=== PATIENT | male | born 1940 | race Caucasian/White ===

== ENCOUNTER 2016-03-20 08:00 | Outpatient (CLI) | payer MEDICARE, OTHER | END 2016-03-20 08:01 | disposition home or self-care (01) | DX: M79.1 Myalgia (principal) ==

== ENCOUNTER 2016-05-10 15:49 | Outpatient (CLI) | payer MEDICARE, OTHER | END 2016-05-10 15:50 | disposition home or self-care (01) | DX: J32.8 Other chronic sinusitis (principal); J34.89 Other specified disorders of nose and nasal sinuses; I65.29 Occlusion and stenosis of unspecified carotid artery ==

== ENCOUNTER 2016-06-21 12:23 | Outpatient (CLI) | payer MEDICARE, OTHER | END 2016-06-21 12:24 | disposition home or self-care (01) | DX: E78.2 Mixed hyperlipidemia (principal) ==

== ENCOUNTER 2016-10-23 08:00 | Outpatient (CLI) | payer MEDICARE, OTHER ==
[2016-10-23 18:33] LABS: ALBUMIN/GLOBULIN RATIO 1.5 (1.0-2.2); CALCIUM 8.7 mg/dL (8.5-10.3); CREATININE 1.2 mg/dL (0.6-1.2); POTASSIUM 3.6 mmol/L (3.5-5.0); TOTAL PROTEIN 6.7 g/dL (6.7-8.2)
[2016-10-25 12:41] LABS: TEST RESULT REPORT (())
[2016-10-25 16:07] LABS: TEST RESULT REPORT (())
== END 2016-10-23 08:01 | disposition home or self-care (01) ==
LOC: LAB.F 08:00
PROVIDERS: ATTEND Internal Medicine Cardiovascular Disease
DX: E78.2 Mixed hyperlipidemia (principal)
CPT/HCPCS: 36415; 80053; 81599; 82465; 82550; 83704; 83718; 84478

== ENCOUNTER 2017-01-31 07:51 | Outpatient (CLI) | payer MEDICARE, OTHER ==
[2017-01-31 11:44] LABS: PSA TOTAL 1.26 ng/mL (0.000-2.000)
[2017-01-31 11:49] LABS: THYROID STIMULATING HORMONE 1.39 uIU/mL (0.34-5.60)
[2017-01-31 11:54] LABS: PROLACTIN 22.75 ng/mL
== END 2017-01-31 07:52 | disposition home or self-care (01) ==
LOC: LAB.F 07:51
PROVIDERS: ATTEND Internal Medicine Endocrinology, Diabetes & Metabolism
DX: D35.2 Benign neoplasm of pituitary gland (principal); E23.0 Hypopituitarism
CPT/HCPCS: 36415; 84146; 84153; 84403; 84439; 84443; 85014; 85025

== ENCOUNTER 2017-02-16 11:15 | Outpatient (CLI) | payer MEDICARE, OTHER ==
[2017-02-16 17:43] LABS: BASOPHILS % (AUTO) 0.2 %; EOSINOPHILS # (AUTO) 0.2 10^3/uL (0.0-0.7); HCT - HEMATOCRIT 39.4 % (42.0-52.0); HGB - HEMOGLOBIN 13.1 g/dL (14.0-18.0); LYMPHOCYTES # (AUTO) 2.1 10^3/uL (1.5-3.5); LYMPHOCYTES % (AUTO) 34.6 %; MEAN CORPUSCULAR HEMOGLOBIN 29.7 pg (27.0-31.0); MEAN CORPUSCULAR HGB CONC 33.2 g/dL (32.0-36.0); MEAN CORPUSCULAR VOLUME 89.3 fL (80.0-94.0); MONOCYTES # (AUTO) 0.6 10^3/uL (0.0-1.0); MONOCYTES % (AUTO) 10.4 %; NEUTROPHILS # (AUTO) 3.1 10^3/uL (1.5-6.6); NEUTROPHILS % (AUTO) 51.8 %; RED BLOOD COUNT 4.41 10^6/uL (4.70-6.10); RED CELL DISTRIBUTION WIDTH 13.6 % (12.0-15.0)
[2017-02-16 18:34] LABS: CALCIUM 8.6 mg/dL (8.5-10.3); CREATININE 1.2 mg/dL (0.6-1.2); POTASSIUM 3.6 mmol/L (3.5-5.0)
== END 2017-02-16 11:16 | disposition home or self-care (01) ==
LOC: LAB.F 11:15
PROVIDERS: ATTEND Internal Medicine
DX: I10 Essential (primary) hypertension (principal); D64.9 Anemia, unspecified
CPT/HCPCS: 36415; 80048; 85025

== ENCOUNTER 2017-03-22 14:55 | Outpatient (CLI) | payer MEDICARE, OTHER ==
--- NOTE | 2017-03-23 10:19 | XRAY Report ---
DATE OF SERVICE: 03/22/2017 THREE VIEW LUMBAR SPINE: 03/22/2017 CLINICAL INDICATION: Low back pain. FINDINGS: AP, lateral, coned down views of the lumbar spine are compared to previous films of 02/16/2016. Degenerative disk and facet disease appears stable, with the worst disk space narrowing at L4-L5. There is no evidence of interval fracture or subluxation. Mild dextroscoliosis is present, which may be positional in nature. 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 IMPRESSION: MILD DEGENERATIVE CHANGES, WITHOUT SIGNIFICANT INTERVAL CHANGE. NO EVIDENCE OF INTERVAL FRACTURE. TD: 03/23/2017 11:18
== END 2017-03-22 14:56 | disposition home or self-care (01) ==
LOC: DI 14:55
PROVIDERS: ATTEND Internal Medicine
DX: M51.36 Other intervertebral disc degeneration, lumbar region (principal); M47.896 Other spondylosis, lumbar region
CPT/HCPCS: 72100

== ENCOUNTER 2017-08-23 10:27 | Outpatient (CLI) | payer MEDICARE, OTHER ==
[2017-08-23 18:19] LABS: CREATININE 1.3 mg/dL (0.6-1.2)
[2017-08-23 18:23] LABS: COLLECTION TIME,URINE 1440 min; TOTAL VOLUME,URINE 1900 mL
[2017-08-23 18:31] LABS: CREATININE,URINE 59.1 mg/dL
== END 2017-08-23 10:28 | disposition home or self-care (01) ==
LOC: LAB.F 10:27
PROVIDERS: ATTEND Internal Medicine Nephrology
DX: N18.3 Chronic kidney disease, stage 3 (moderate) (principal)
CPT/HCPCS: 36415; 82565; 82575; 84156

== ENCOUNTER 2017-09-15 10:30 | Outpatient (CLI) | payer MEDICARE, OTHER ==
[2017-09-15 11:40] LABS: THYROID STIMULATING HORMONE 0.13 uIU/mL (0.34-5.60)
[2017-09-15 11:42] LABS: FREE T4 (FREE THYROXINE) 1.28 ng/dL (0.58-1.64)
== END 2017-09-15 10:31 | disposition home or self-care (01) ==
LOC: LAB 10:30
PROVIDERS: ATTEND Internal Medicine Endocrinology, Diabetes & Metabolism
DX: D35.2 Benign neoplasm of pituitary gland (principal)
CPT/HCPCS: 36415; 84439; 84443; 84481

== ENCOUNTER 2017-11-20 14:38 | Outpatient (CLI) | payer MEDICARE, OTHER | END 2017-11-20 14:39 | disposition home or self-care (01) | LOC: LAB.F 14:38 | PROVIDERS: ATTEND Internal Medicine | DX: Z12.5 Encounter for screening for malignant neoplasm of prostate (principal) | CPT/HCPCS: 36415; G0103; 84153 ==

== ENCOUNTER 2017-12-15 10:55 | Emergency (ER) | payer MEDICARE, OTHER ==
--- NOTE | 2017-12-15 12:36 | ED Physician Documentation ---
PD HPI URI - Stated complaint Stated Complaint: COUGH,SOA - Chief complaint Chief Complaint: Resp - History obtained from History obtained from: Patient, Family - History of Present Illness Timing details: Gradual onset (He and his just got back from [place], while there about 2 weeks ago he got a cold with classic URI symptoms. He was improving but over the last day or so has developed more paroxysms of coughing. During the coughing he is short of breath but he does not have shortness of breath or chest pain when he is not coughing. He denies any leg swelling or pedal edema. He has had some calf cramping but it is symmetric and that was from flying. He called his doctor who based on the travel was worried about PE and referred him to the emergency department.) Review of Systems Ten Systems: 10 systems reviewed and negative Constitutional: denies: Fever, Chills Nose: reports: Rhinorrhea / runny nose Respiratory: reports: Cough. denies: Dyspnea GI: denies: Abdominal Pain PD PAST MEDICAL HISTORY - Past Medical History Past Medical History: Yes Cardiovascular: Hypertension, Coronary artery disease Respiratory: None Endocrine/Autoimmune: None GI: GERD : Benign prostate hypertrophy Musculoskeletal: None Derm: None Other Past Medical History: Pituitary tumor - Past Surgical History Past Surgical History: Yes General: Colonoscopy, EGD Ortho: ACL reconstruction Cardiovascular: Angioplasty HEENT: Cataracts, Detached retina repair - Present Medications Home Medications: Ambulatory Orders Medication Instructions Recorded Confirmed Amlodipine Besylate 5 mg PO DAILY 07/04/13 12/15/17 Aspirin [Children's Aspirin] 81 mg PO DAILY 07/04/13 12/15/17 Nebivolol HCl [Bystolic] 5 mg PO DAILY 07/04/13 12/15/17 Telmisartan [Micardis] 80 mg PO DAILY 07/04/13 12/15/17 Ubidecarenone [Co Q-10] 10 mg PO DAILY 07/04/13 12/15/17 Omeprazole 20 mg PO BID PRN 07/07/13 12/15/17 Albuterol Sulf [Ventolin Hfa 1 - 2 puffs INH Q4HR PRN #1 inhaler 12/15/17 Inhaler] Alirocumab [Praluent Pen] 1 applic SUBQ DAILY 12/15/17 12/15/17 Ascorbic Acid [Vitamin C] 1 cap PO DAILY 12/15/17 12/15/17 Benzonatate [Tessalon Perle] 100 - 200 mg PO TID PRN #30 capsule 12/15/17 Cholecalciferol (Vitamin D3) 1 cap PO DAILY 12/15/17 12/15/17 [Vitamin D3] Hydrocodone Bit/Homatrop Me-Br 5 - 10 ml PO Q4HR PRN #120 ml 12/15/17 [Hydrocodone-Homatropine Syrup] Levothyroxine Sodium 1 tab PO DAILY 12/15/17 12/15/17 Magnesium Oxide [Magnesium] 1 cap PO DAILY 12/15/17 12/15/17 [place]-3/Dha/Epa/Fish Oil [Fish Oil 1 cap PO DAILY 12/15/17 12/15/17 1,000 mg Softgel] Testosterone [Androgel] 2 pump TD DAILY 12/15/17 12/15/17 raNITIdine [Zantac] 300 mg PO DAILY 12/15/17 12/15/17 - Allergies Allergies/Adverse Reactions: Allergies Allergy/AdvReac Type Severity Reaction Status Date / Time No Known Drug Allergies Allergy Verified 12/15/17 11:28 - Social History Does the pt smoke?: No Smoking Status: Never smoker Does the pt drink ETOH?: No Does the pt have substance abuse?: No - Immunizations Immunizations are current?: Yes PD ED PE NORMAL - Vitals Vital signs reviewed: Yes - General General: Alert and oriented X 3, No acute distress - HEENT HEENT: PERRL, EOMI - Neck Neck: Supple, no meningeal sign, No bony TTP - Cardiac Cardiac: RRR, No murmur - Respiratory Respiratory: Other (Diminished in the right middle lobe, rhonchorous at the bases, no wheezing.) - Abdomen Abdomen: Non tender - Extremities Extremities: No edema, No calf tenderness / cord - Neuro Neuro: Alert and oriented X 3, Normal speech Results - Vitals Vitals: Vital Signs - 24 hr 12/15/17 11:13 Temperature 36.2 C L Heart Rate 52 L Respiratory 16 Rate Blood Pressure 138/74 H O2 Saturation 98 Oxygen O2 Source Room air PD MEDICAL DECISION MAKING - ED course ED course: He was referred in for the evaluation of PE in the setting of a cough and URI symptoms. Having performed a history and physical I discussed with him that I think this is very unlikely. He does not have any asymmetric leg symptoms, hemoptysis, or shortness of breath when he is not coughing. Departure - Departure Disposition: 01 Home, Self Care Clinical Impression: Upper respiratory tract infection Qualifiers: URI type: unspecified viral URI Qualified Code(s): J06.9 - Acute upper respiratory infection, unspecified Condition: Good Record reviewed to determine appropriate education?: Yes Instructions: ED Bronchitis Asthmatic Prescriptions: Albuterol Sulf [Ventolin Hfa Inhaler] 1 - 2 puffs INH Q4HR PRN #1 inhaler PRN Reason: Shortness Of Air/Wheezing Hydrocodone Bit/Homatrop Me-Br [Hydrocodone-Homatropine Syrup] 5 - 10 ml PO Q4HR PRN #120 ml PRN Reason: Cough Benzonatate [Tessalon Perle] 100 - 200 mg PO TID PRN #30 capsule PRN Reason: Cough Comments: Your blood pressure was elevated today on check into the emergency department. This does not mean that you have hypertension, it is a common phenomenon to come to the emergency department and have elevated blood pressure. I recommend that you see your primary care physician within the week to have it rechecked when you are feeling better.
--- NOTE | 2017-12-15 13:18 | XRAY Report ---
Reason: cough Procedure Date: 12/15/2017 Accession Number: [id number] / [id number] Procedure: XR - Chest 2 View X-Ray CPT Code: 95995 FULL RESULT: EXAM: CHEST RADIOGRAPHY EXAM DATE: 12/15/2017 12:46 PM. CLINICAL HISTORY: Cough. COMPARISON: CHEST 2 VIEW PA/LAT 09/03/2012 11:[address] CHEST WITHOUT CONTRAST 10/18/2017 2:53 PM (images only; no report). TECHNIQUE: 2 views. FINDINGS: Lungs/Pleura: No focal consolidation evident. No pleural effusion. No pneumothorax. Normal volumes. Mediastinum: Normal size of the cardiac silhouette. Mildly tortuous, atherosclerotic thoracic aorta. Other: None. IMPRESSION: No radiographically apparent acute abnormality in the chest. RADIA
[2017-12-15 13:51] VITALS: BP 172/81
[2017-12-17 15:57] LABS: B. PARAPERTUSSIS DNA NOT DETECTED; B. PERTUSSIS DNA NOT DETECTED; SOURCE NASOP
== END 2017-12-15 13:58 | disposition home or self-care (01) ==
LOC: ED 10:55
DX: J06.9 Acute upper respiratory infection, unspecified (principal); I10 Essential (primary) hypertension; I25.10 Atherosclerotic heart disease of native coronary artery without angina pectoris; Z79.82 Long term (current) use of aspirin
CPT/HCPCS: 71046; 87801; 99283

== ENCOUNTER 2018-02-11 12:17 | Outpatient (CLI) | payer MEDICARE, OTHER ==
[2018-02-11 13:20] LABS: ALBUMIN 3.6 g/dL (3.2-5.5); ALBUMIN/GLOBULIN RATIO 1.2 (1.0-2.2); BILIRUBIN,TOTAL 1.1 mg/dL (0.2-1.0); CALCIUM 8.4 mg/dL (8.5-10.3); TOTAL PROTEIN 6.6 g/dL (6.7-8.2)
[2018-02-15 05:06] LABS: HDL LARGE 4167 nmol/L (3382-9376); LDL PARTICLE NUMBER 619 nmol/L (732-2035); LDL PATTERN B Pattern (A); LDL SMALL 112 nmol/L (85-473)
== END 2018-02-11 12:18 | disposition home or self-care (01) ==
LOC: LAB 12:17
PROVIDERS: ATTEND Internal Medicine Cardiovascular Disease
DX: E78.2 Mixed hyperlipidemia (principal)
CPT/HCPCS: 36415; 80053; 81599; 82465; 82550; 83704; 83718; 84478

== ENCOUNTER 2018-05-30 11:20 | Outpatient (CLI) | payer MEDICARE, OTHER | END 2018-05-30 11:21 | disposition home or self-care (01) | LOC: LAB.F 11:20 | DX: D35.2 Benign neoplasm of pituitary gland (principal) ==

== ENCOUNTER 2018-05-30 12:27 | Outpatient (CLI) | payer MEDICARE, OTHER ==
[2018-05-30 12:47] LABS: CALCIUM 8.7 mg/dL (8.5-10.3); CREATININE 1.1 mg/dL (0.6-1.2)
== END 2018-05-30 12:28 | disposition home or self-care (01) ==
LOC: LAB 12:27
PROVIDERS: ATTEND Neurological Surgery
DX: D35.2 Benign neoplasm of pituitary gland (principal)
CPT/HCPCS: 36415; 80048

== ENCOUNTER 2018-06-03 12:56 | Outpatient (CLI) | payer MEDICARE, OTHER ==
[2018-06-03 13:14] LABS: CALCIUM 8.8 mg/dL (8.5-10.3); CREATININE 1.2 mg/dL (0.6-1.2)
== END 2018-06-03 12:57 | disposition home or self-care (01) ==
LOC: LAB 12:56
PROVIDERS: ATTEND Neurological Surgery
DX: D35.2 Benign neoplasm of pituitary gland (principal)
CPT/HCPCS: 36415; 80048

== ENCOUNTER 2018-07-31 11:12 | Outpatient (CLI) | payer MEDICARE, OTHER ==
[2018-07-31 18:53] LABS: HB2 TOTAL 13.8 g/dL; HEMOGLOBIN A1C 0.6 g/dL; HEMOGLOBIN A1C % 6.1 % (4.6-6.2)
[2018-07-31 19:04] LABS: ALBUMIN 3.7 g/dL (3.2-5.5); ALBUMIN/GLOBULIN RATIO 1.1 (1.0-2.2); ALKALINE PHOSPHATASE 43 IU/L (42-121); ALT ALANINE AMINOTRANSFERASE 17 IU/L (10-60); AST ASPARTATE AMINOTRANSFERASE 19 IU/L (10-42); BILIRUBIN,TOTAL 1.2 mg/dL (0.2-1.0); BUN - BLOOD UREA NITROGEN 19 mg/dL (6-20); CALCIUM 8.8 mg/dL (8.5-10.3); CARBON DIOXIDE - CO2 28 mmol/L (21-32); CHLORIDE 101 mmol/L (101-111); CHOL/HDL RATIO 3.3 (<5.0); CHOLESTEROL 144 mg/dL; CREATININE 1.3 mg/dL (0.6-1.2); GFR - MDRD 54 (>89); GLUCOSE 119 mg/dL (70-100); HDL CHOLESTEROL 43 mg/dL; LDL CHOLESTEROL,CALCULATED 78 mg/dL; LDL/HDL RATIO 1.8 (<3.6); SODIUM 138 mmol/L (135-145); VLDL CHOLESTEROL 23 mg/dL
== END 2018-07-31 11:13 | disposition home or self-care (01) ==
LOC: LAB.F 11:12
PROVIDERS: ATTEND Internal Medicine
DX: E78.5 Hyperlipidemia, unspecified (principal); R73.02 Impaired glucose tolerance (oral)
CPT/HCPCS: 36415; 80053; 80061; 83036; 83721

== ENCOUNTER 2018-10-09 12:05 | Outpatient (CLI) | payer MEDICARE, OTHER ==
[2018-10-09 12:56] LABS: CALCIUM 9.7 mg/dL (8.5-10.3); CREATININE 1.3 mg/dL (0.6-1.2)
== END 2018-10-09 12:06 | disposition home or self-care (01) ==
LOC: LAB 12:05
PROVIDERS: ATTEND Internal Medicine Cardiovascular Disease
DX: N18.3 Chronic kidney disease, stage 3 (moderate) (principal)
CPT/HCPCS: 36415; 80048

== ENCOUNTER 2018-10-16 13:02 | Outpatient (CLI) | payer MEDICARE, OTHER ==
--- NOTE | 2018-10-17 09:13 | XRAY Report ---
Reason: BL FOOT PAIN Procedure Date: 10/16/2018 Accession Number: [id number] / [id number] Procedure: XRS - Foot 3 View BILAT CPT Code: FULL RESULT: EXAMS: 1. RIGHT FOOT RADIOGRAPHY 2. LEFT FOOT RADIOGRAPHY EXAM DATE: 10/16/2018 01:17 PM. CLINICAL HISTORY: BILATERAL FOOT PAIN. COMPARISON: None. TECHNIQUE: 3 views each foot. FINDINGS: Right: Bones: No fractures or bone lesions. 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 No subluxations. Soft Tissues: Normal. No soft tissue swelling. Left: Bones: No fractures or bone lesions. Joints: Hallucis valgus deformity with mild degenerative arthritis in the first metatarsophalangeal joint. No subluxations. Soft Tissues: Normal. No soft tissue swelling. 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 RADIA
== END 2018-10-16 13:03 | disposition home or self-care (01) ==
LOC: DI.S 13:02
PROVIDERS: ATTEND Podiatrist
DX: M19.072 Primary osteoarthritis, left ankle and foot (principal); M19.071 Primary osteoarthritis, right ankle and foot; M20.12 Hallux valgus (acquired), left foot; M20.11 Hallux valgus (acquired), right foot

== ENCOUNTER 2018-11-13 09:27 | Outpatient (CLI) | payer MEDICARE, OTHER ==
[2018-11-13 17:43] LABS: ALBUMIN 3.6 g/dL (3.2-5.5); BILIRUBIN,DIRECT 0.1 mg/dL (0.1-0.5); TOTAL PROTEIN 6.6 g/dL (6.7-8.2)
== END 2018-11-13 09:28 | disposition home or self-care (01) ==
LOC: LAB.S 09:27
PROVIDERS: ATTEND Internal Medicine Endocrinology, Diabetes & Metabolism
DX: R19.5 Other fecal abnormalities (principal)
CPT/HCPCS: 36415; 80076

== ENCOUNTER 2018-11-14 15:25 | Outpatient (CLI) | payer MEDICARE, OTHER ==
[2018-11-14 17:40] LABS: ALBUMIN 3.5 g/dL (3.2-5.5); ALBUMIN/GLOBULIN RATIO 1.2 (1.0-2.2); BILIRUBIN,TOTAL 0.7 mg/dL (0.2-1.0); CALCIUM 8.7 mg/dL (8.5-10.3); CREATININE 1.3 mg/dL (0.6-1.2); TOTAL PROTEIN 6.5 g/dL (6.7-8.2)
[2018-11-16 20:16] LABS: ANA SCREEN NEGATIVE (NEGATIVE)
== END 2018-11-14 15:26 | disposition home or self-care (01) ==
LOC: LAB.S 15:25
PROVIDERS: ATTEND Family Medicine
DX: R19.4 Change in bowel habit (principal)
CPT/HCPCS: 36415; 80053; 85651; 86038; 86140

== ENCOUNTER 2018-12-04 11:51 | Outpatient (CLI) | payer MEDICARE, OTHER ==
[2018-12-04 18:06] LABS: BASOPHILS % (AUTO) 0.7 %; EOSINOPHILS # (AUTO) 0.2 10^3/uL (0.0-0.7); EOSINOPHILS % (AUTO) 3.9 %; HGB - HEMOGLOBIN 12.6 g/dL (14.0-18.0); LYMPHOCYTES # (AUTO) 2.1 10^3/uL (1.5-3.5); LYMPHOCYTES % (AUTO) 36.7 %; MEAN CORPUSCULAR HGB CONC 31.4 g/dL (32.0-36.0); MEAN CORPUSCULAR VOLUME 86.1 fL (80.0-94.0); MONOCYTES # (AUTO) 0.5 10^3/uL (0.0-1.0); MONOCYTES % (AUTO) 9.5 %; NEUTROPHILS # (AUTO) 2.8 10^3/uL (1.5-6.6); NEUTROPHILS % (AUTO) 48.7 %; PLT - PLATELET COUNT 222 10^3/uL (130-450); RED BLOOD COUNT 4.66 10^6/uL (4.70-6.10); RED CELL DISTRIBUTION WIDTH 15.1 % (12.0-15.0); WHITE BLOOD COUNT 5.7 x10^3/uL (4.8-10.8)
[2018-12-04 18:24] LABS: ALBUMIN 3.7 g/dL (3.2-5.5); ALBUMIN/GLOBULIN RATIO 1.2 (1.0-2.2); ALKALINE PHOSPHATASE 47 IU/L (42-121); ALT ALANINE AMINOTRANSFERASE 18 IU/L (10-60); AST ASPARTATE AMINOTRANSFERASE 19 IU/L (10-42); BILIRUBIN,TOTAL 1.1 mg/dL (0.2-1.0); BUN - BLOOD UREA NITROGEN 26 mg/dL (6-20); CALCIUM 8.8 mg/dL (8.5-10.3); CARBON DIOXIDE - CO2 31 mmol/L (21-32); CHLORIDE 99 mmol/L (101-111); CREATININE 1.3 mg/dL (0.6-1.2); GFR - MDRD 54 (>89); GLUCOSE 124 mg/dL (70-100); SODIUM 140 mmol/L (135-145); TOTAL PROTEIN 6.7 g/dL (6.7-8.2); URIC ACID 7.3 mg/dL (2.6-7.2)
[2018-12-04 18:38] LABS: THYROID STIMULATING HORMONE 0.5 uIU/mL (0.34-5.60)
[2018-12-04 18:40] LABS: FREE T4 (FREE THYROXINE) 0.9 ng/dL (0.58-1.64)
[2018-12-04 18:44] LABS: CRP - C-REACTIVE PROTEIN < 1.0 mg/dL (0-1.0)
[2018-12-04 18:45] LABS: TOTAL T3 1.06 ng/mL (0.87-1.78)
[2018-12-10 09:26] LABS: ANA SCREEN NEGATIVE (NEGATIVE)
== END 2018-12-04 11:52 | disposition home or self-care (01) ==
LOC: LAB.S 11:51
PROVIDERS: ATTEND Internal Medicine Rheumatology
DX: M35.9 Systemic involvement of connective tissue, unspecified (principal); E55.9 Vitamin D deficiency, unspecified; E03.9 Hypothyroidism, unspecified
CPT/HCPCS: 36415; 80053; 81599; 82085; 82306; 84439; 84443; 84480; 84550; 85025; 85651; 86038; 86140; 86147

== ENCOUNTER 2019-03-19 08:00 | Outpatient (CLI) | payer MEDICARE, OTHER | END 2019-03-19 23:59 | disposition home or self-care (01) | LOC: LAB.R 08:00 | PROVIDERS: ATTEND Internal Medicine Gastroenterology | DX: R19.7 Diarrhea, unspecified (principal) | CPT/HCPCS: 87045; 87046; 87493 ==

== ENCOUNTER 2019-04-12 00:52 | Emergency (ER) | payer MEDICARE ==
--- NOTE | 2019-04-12 01:00 | ED Physician Documentation ---
History of Present Illness - Stated complaint Stated Complaint: HEADACHE - Chief complaint Chief Complaint: Neuro - History obtained from History obtained from: Patient (the patient is a 78 y/o m who c/o right sided facial pain and pressure without facial droop or slurred speech and also now reports a mild headache on the right side. he reports a hx of hypertension but no hx of stroke or dvt. he reports his symptoms starting on descent into [facility] while he was flying commercially back from [place]. he states he felt some right sided face and ear pressure that started gradually on descent and then resolved spontaneously but has since returned so he presents to the ed for evaluation. he takes 2 baby asa daily. also takes ativan several times daily for anxiety. he denies any visual or hearing loss or any bleeing from the nares or EACs. Denies any hx of FESS or CRS. is complaing now also of a headache that is gradual in onset not maximum in intensity and not the worst headache of his life. patient also reports in the last year he has had surgery to remove a pituitary tumor at [facility] by their neurosurgeon and ENT specialist.) Review of Systems Constitutional: reports: Reviewed and negative Eyes: reports: Reviewed and negative Ears: reports: Ear pain Nose: reports: Sinus pressure / pain Throat: reports: Reviewed and negative Cardiac: reports: Reviewed and negative Respiratory: reports: Reviewed and negative GI: reports: Reviewed and negative : reports: Reviewed and negative Skin: reports: Reviewed and negative Musculoskeletal: reports: Reviewed and negative Neurologic: reports: Headache Psychiatric: reports: Reviewed and negative Endocrine: reports: Reviewed and negative Immunocompromised: reports: Reviewed and negative PD PAST MEDICAL HISTORY - Past Medical History Cardiovascular: Hypertension, Coronary artery disease Respiratory: None Endocrine/Autoimmune: None GI: GERD : Benign prostate hypertrophy Musculoskeletal: None Derm: None - Past Surgical History Past Surgical History: Yes General: Colonoscopy, EGD Ortho: ACL reconstruction Cardiovascular: Angioplasty HEENT: Cataracts, Detached retina repair - Present Medications Home Medications: Ambulatory Orders Medication Instructions Recorded Confirmed Amlodipine Besylate 5 mg PO DAILY 07/04/13 04/12/19 Aspirin [Children's Aspirin] 81 mg PO DAILY 07/04/13 04/12/19 Nebivolol HCl [Bystolic] 5 mg PO DAILY 07/04/13 04/12/19 Telmisartan [Micardis] 80 mg PO DAILY 07/04/13 04/12/19 Ubidecarenone [Co Q-10] 10 mg PO DAILY 07/04/13 04/12/19 Omeprazole 20 mg PO BID PRN 07/07/13 04/12/19 Alirocumab [Praluent Pen] 1 applic SUBQ DAILY 12/15/17 04/12/19 Ascorbic Acid [Vitamin C] 1 cap PO DAILY 12/15/17 04/12/19 Benzonatate [Tessalon Perle] 100 - 200 mg PO TID PRN #30 capsule 12/15/17 04/12/19 Cholecalciferol (Vitamin D3) 1 cap PO DAILY 12/15/17 04/12/19 [Vitamin D3] Hydrocodone Bit/Homatrop Me-Br 5 - 10 ml PO Q4HR PRN #120 ml 12/15/17 04/12/19 [Hydrocodone-Homatropine Syrup] Levothyroxine Sodium 1 tab PO DAILY 12/15/17 04/12/19 Magnesium Oxide [Magnesium] 1 cap PO DAILY 12/15/17 04/12/19 [place]-3/Dha/Epa/Fish Oil [Fish Oil 1 cap PO DAILY 12/15/17 04/12/19 1,000 mg Softgel] Testosterone [Androgel] 2 pump TD DAILY 12/15/17 04/12/19 - Allergies Allergies/Adverse Reactions: Allergies Allergy/AdvReac Type Severity Reaction Status Date / Time No Known Drug Allergies Allergy Verified 04/12/19 01:01 - Social History Does the pt smoke?: No Smoking Status: Never smoker Does the pt drink ETOH?: No Does the pt have substance abuse?: No - Immunizations Immunizations are current?: Yes PD ED PE NORMAL - Vitals Vital signs reviewed: Yes - General General: Alert and oriented X 3, No acute distress, Well developed/nourished, Other - HEENT HEENT: Atraumatic, PERRL, EOMI, Ears normal, Moist mucous membranes, Pharynx benign, Dentition benign, Other (tenderness to palpation over the right maxillary sinus, abnormal valsalva bilaterally, no hemotympanum b/l. clear drainage in the posterior oropharynx.) - Neck Neck: Supple, no meningeal sign, No bony TTP, No adenopathy, Thyroid normal, No JVD, No bruit - Cardiac Cardiac: RRR, No murmur, Strong equal pulses - Respiratory Respiratory: No respiratory distress, Clear bilaterally - Abdomen Abdomen: Normal bowel sounds, Soft, Non tender, Non distended, No organomegaly, Other (no midline abd pulsatile mass) - Back Back: No CVA TTP, No spinal TTP - Derm Derm: Normal color, Warm and dry, No rash - Extremities Extremities: No deformity, No tenderness to palpate, Normal ROM s pain, No edema, No calf tenderness / cord - Neuro Neuro: Alert and oriented X 3, telephoner 2-12 intact, No motor deficit, No sensory deficit, Normal speech, Other (no facial droop, no unilateral weakness, normal finger to nose, normal rapid alternating movement, normal heal to bragg, normal gait, strength 5/5 in b/l upper and lower extremities. sensation intact throughout.) - Psych Psych: Normal mood, Normal affect Results - Vitals Vitals: Vital Signs - 24 hr 04/12/19 04/12/19 04/12/19 00:55 02:07 02:27 Temperature 36.3 C L Heart Rate 68 60 60 Respiratory 20 16 16 Rate Blood Pressure 223/98 H 164/87 H 153/89 H O2 Saturation 98 98 96 04/12/19 03:00 Temperature Heart Rate 67 Respiratory 17 Rate Blood Pressure 145/83 H O2 Saturation 99 Oxygen O2 Source Room air - EKG (time done) 01:36 Rate: Rate (enter#), Other (NO STEMI) - Labs Labs: Laboratory Tests 04/12/19 04/12/19 04/12/19 01:27 01:27 01:27 WBC 7.3 RBC 4.63 L Hgb 13.3 L Hct 40.1 L MCV 86.6 MCH 28.7 MCHC 33.2 RDW 14.4 Plt Count 220 MPV 10.5 Neut # (Auto) 3.6 Lymph # (Auto) 2.6 [place] # (Auto) 0.7 Eos # (Auto) 0.3 Baso # (Auto) 0.0 Absolute Nucleated RBC 0.00 Nucleated RBC % 0.0 PT 10.9 INR 1.0 APTT 28.5 Sodium 140 Potassium 3.4 L Chloride 101 Carbon Dioxide 27 Anion Gap 12.0 BUN 31 H Creatinine 1.4 H Estimated GFR (MDRD) 49 L Glucose 152 H Calcium 9.9 Total Bilirubin 0.6 AST 27 ALT 31 Alkaline Phosphatase 44 Total Creatine Kinase 69 Troponin I High Sens B-Natriuretic Peptide Total Protein 6.8 Albumin 3.8 Globulin 3.0 Albumin/Globulin Ratio 1.3 Lipase 43 04/12/19 04/12/19 01:27 01:27 WBC RBC Hgb Hct MCV MCH MCHC RDW Plt Count MPV Neut # (Auto) Lymph # (Auto) [place] # (Auto) Eos # (Auto) Baso # (Auto) Absolute Nucleated RBC Nucleated RBC % PT INR APTT Sodium Potassium Chloride Carbon Dioxide Anion Gap BUN Creatinine Estimated GFR (MDRD) Glucose Calcium Total Bilirubin AST ALT Alkaline Phosphatase Total Creatine Kinase Troponin I High Sens 8.9 B-Natriuretic Peptide 41 Total Protein Albumin Globulin Albumin/Globulin Ratio Lipase PD MEDICAL DECISION MAKING - ED course Complexity details: re-evaluated patient (pain free now, BP 140s/80s B/L UE. hx and exam and testing are consistent with pain secondary to altitude changes and pressures causing pain in right side of face CT shows are large right sided mucous retention cyst in the right maxillary sinus. ), d/w patient (i had a lengthy discussion with the patient and the patient's and provided them with printouts of the radiologist interpretation as well as labs and explained the importance of avoiding an flying or diving and to follow up with his ENT and his NS as well as his PCP to recheck his kidney function as well since his creatinine was 1.4. ), d/w family, other (patient history and exam are consistent with possible barotrauma however in the setting of hypertension with SBP > 220 this is also concerning for spontaneous hemorrhagic intracranial event as well. will get screening CTH and CT Sinuses to rule out ICH and barotrauma and screening CXR since he is also c/o right sided jaw pain now on reexamination, dental exam is unremarkable, no pain on palpation of the face or crepitus of the face, no hemotympanum b/l and no blood or dc from the nares or in the posterior oropharynx. ) Departure - Departure Disposition: 01 Home, Self Care Clinical Impression: Sinus barotrauma, initial encounter Headache Qualifiers: Headache type: other headache syndrome Qualified Code(s): G44.89 - Other headache syndrome Hypertension Qualifiers: Hypertension type: unspecified secondary hypertension Qualified Code(s): I15.9 - Secondary hypertension, unspecified; I15 - Secondary hypertension Condition: Good Instructions: Sinus Probs, ED Barotrauma Ear Follow-Up: Sergey Mascorro MD [Primary Care Provider] - 04/12/19 Comments: follow up with your ENT next week if possible, avoid flying or diving until cleared by your ENT. Discharge Date/Time: 04/12/19 03:47
[2019-04-12] MEDS ORDERED: LORazepam 2 MG/ML VIAL IVP STA (01:23)
[2019-04-12] MEDS ORDERED: MORPHINE 2 MG/ML CARPUJECT IVP STA (01:23)
[2019-04-12] MEDS ORDERED: SODIUM CHLORIDE 0.9% 1,000 ML IV ONE (01:23)
[2019-04-12] MEDS ORDERED: ONDANSETRON 4 MG/2 ML VIAL IVP STA (01:24)
[2019-04-12] MEDS ORDERED: FAMOTIDINE 20 MG/2 ML VIAL IVP STA (01:28)
[2019-04-12 01:45] LABS: BASOPHILS % (AUTO) 0.4 %; EOSINOPHILS # (AUTO) 0.3 10^3/uL (0.0-0.7); EOSINOPHILS % (AUTO) 4.1 %; HGB - HEMOGLOBIN 13.3 g/dL (14.0-18.0); LYMPHOCYTES # (AUTO) 2.6 10^3/uL (1.5-3.5); LYMPHOCYTES % (AUTO) 36.4 %; MEAN CORPUSCULAR HEMOGLOBIN 28.7 pg (27.0-31.0); MEAN CORPUSCULAR HGB CONC 33.2 g/dL (32.0-36.0); MEAN CORPUSCULAR VOLUME 86.6 fL (80.0-94.0); MEAN PLATELET VOLUME 10.5 fL (7.4-11.4); MONOCYTES # (AUTO) 0.7 10^3/uL (0.0-1.0); MONOCYTES % (AUTO) 9.4 %; NEUTROPHILS # (AUTO) 3.6 10^3/uL (1.5-6.6); NEUTROPHILS % (AUTO) 49.3 %; PLT - PLATELET COUNT 220 10^3/uL (130-450); RED BLOOD COUNT 4.63 10^6/uL (4.70-6.10); RED CELL DISTRIBUTION WIDTH 14.4 % (12.0-15.0); WHITE BLOOD COUNT 7.3 x10^3/uL (4.8-10.8)
[2019-04-12 01:51] LABS: ALBUMIN 3.8 g/dL (3.2-5.5); ALBUMIN/GLOBULIN RATIO 1.3 (1.0-2.2); BILIRUBIN,TOTAL 0.6 mg/dL (0.2-1.0); CALCIUM 9.9 mg/dL (8.5-10.3); CREATININE 1.4 mg/dL (0.6-1.2); PT - PROTHROMBIN TIME 10.9 secs (9.9-12.6); TOTAL PROTEIN 6.8 g/dL (6.7-8.2)
[2019-04-12 01:58] LABS: PARTIAL THROMBOPLASTIN TIME 28.5 secs (24.9-33.3)
--- NOTE | 2019-04-12 02:44 | XRAY Report ---
Reason: cp Procedure Date: 04/12/2019 Accession Number: [id number] / [id number] Procedure: XR - Chest 1 View X-Ray CPT Code: 06940 Final Report FULL RESULT: EXAM: CHEST RADIOGRAPHY EXAM DATE: 04/12/2019 01:57 AM CLINICAL HISTORY: Chest pain COMPARISON: CHEST 2 VIEW 12/15/2017 12:07 PM. TECHNIQUE: 1 view. FINDINGS: Lungs/Pleura: Clear lungs. No pleural effusion. No pneumothorax. Mediastinum: Within exam limitations, the cardiomediastinal contour is normal. Other: None. IMPRESSION: No acute cardiopulmonary process. RADIA
[2019-04-12 03:10] VITALS: BP 145/83
--- NOTE | 2019-04-12 03:17 | CT Report ---
Reason: right sided face pain Procedure Date: 04/12/2019 Accession Number: [id number] / [id number] Procedure: CT - MAXILLOFACIAL WO CPT Code: Final Report FULL RESULT: EXAM: CT MAXILLOFACIAL WITHOUT CONTRAST EXAM DATE: 04/12/2019 02:11 AM. CLINICAL HISTORY: Right sided face pain. COMPARISONS: SINUSES 05/10/2016 4:06 PM. TECHNIQUE: Thin-section axial images were acquired of the face without contrast. Post-processing: Coronal and sagittal reformats. Other: None. In accordance with CT protocol optimization, one or more of the following dose reduction techniques were utilized for this exam: automated exposure control, adjustment of mA and/or KV based on patient size, or use of iterative reconstructive technique. FINDINGS: Soft Tissue: The infratemporal fossa and parapharyngeal spaces are unremarkable. Orbits: Changes of cataract extraction are noted bilaterally. Bones: No fracture or bone lesion. Temporomandibular Joints: The temporomandibular joints are symmetric and normally located. Sinuses: Postsurgical change is now visualized consistent with sphenoethmoidectomy, partial middle turbinectomy and partial resection of the nasal septum. Mucosal thickening is visualized in the bilateral maxillary sinuses. A large mucus retention cyst is present in the right maxillary sinus nearly completely opacifying the sinus. The left frontal sinuses not pneumatized. The right frontal sinus is hypoplastic. Mucosal thickening is visualized in the residual anterior ethmoid air cells and along the periphery of the resection cavity in the ethmoid and sphenoid regions. No air-fluid level is identified. Other: Vascular calcifications are noted at the carotid bifurcations. Degenerative changes are noted in the imaged cervical spine. IMPRESSION: 1. Postsurgical changes consistent with partial sphenoethmoidectomy, middle turbinectomy and partial resection of the nasal septum. 2. Diffuse mucosal thickening throughout the paranasal sinuses. Large mucus retention cyst noted in the right maxillary sinus. No air-fluid level to suggest acute sinusitis. 3. No evidence of acute bony pathology. RADIA
--- NOTE | 2019-04-12 03:17 | CT Report ---
Reason: BOLES HTN Procedure Date: 04/12/2019 Accession Number: [id number] / [id number] Procedure: CT - HEAD WO CPT Code: Final Report FULL RESULT: EXAM: CT HEAD EXAM DATE: 04/12/2019 01:50 AM. CLINICAL HISTORY: BOLES HTN. COMPARISON: FACIAL BONES W/O 04/12/2019 1:50 AM SINUSES 05/10/2016 4:06 PM. TECHNIQUE: Multiaxial CT images were obtained from the foramen magnum to the vertex. Reformats: Sagittal and coronal. IV contrast: None. In accordance with CT protocol optimization, one or more of the following dose reduction techniques were utilized for this exam: automated exposure control, adjustment of mA and/or KV based on patient size, or use of iterative reconstructive technique. FINDINGS: Parenchyma: No intraparenchymal hemorrhage. No evidence of mass, midline shift, or CT findings of infarction. Ceron-white differentiation is distinct. Mild periventricular hypodensity is noted, nonspecific but most likely due to chronic microvascular ischemia. Small old lacunar-type infarct is suspected in the left basal ganglia. Extraaxial Spaces: Normal for age. No subdural or epidural collections identified. Ventricles: Normal in size and position. Sinuses and Orbits: Imaged portion of the right maxillary sinus is completely opacified. Changes of cataract extraction are noted bilaterally. Bones: No evidence of fracture or calvarial defect. Other: Vascular calcification is visualized in the cavernous segments of the bilateral ICAs and proximal vertebral arteries. IMPRESSION: 1. No evidence of acute intracranial pathology. 2. Mild white matter changes typical of chronic microvascular ischemia. RADIA
[2019-04-12] MEDS ORDERED: HYDROcod/ACET 5/325 Prepack 4 PO STA (03:29)
== END 2019-04-12 03:47 | disposition home or self-care (01) ==
LOC: ED 00:52
DX: T70.1XXA Sinus barotrauma, initial encounter (principal); G44.89 Other headache syndrome; I15.9 Secondary hypertension, unspecified; I10 Essential (primary) hypertension
CPT/HCPCS: 36415; 70450; 70486; 71045; 80053; 82550; 83690; 83880; 84484; 85025; 85610; 85730; 96361; 96374; 96375; 99284; 99285; J2060

== ENCOUNTER 2019-04-24 15:19 | Outpatient (CLI) | payer MEDICARE | END 2019-04-24 15:20 | disposition home or self-care (01) | LOC: LAB.S 15:19 | PROVIDERS: ATTEND Family Medicine | DX: M79.606 Pain in leg, unspecified (principal) | CPT/HCPCS: 36415; 85651; 86140 ==

== ENCOUNTER 2020-03-01 14:40 | Outpatient (CLI) | payer MEDICARE, OTHER | END 2020-03-01 14:41 | disposition home or self-care (01) | LOC: RT 14:40 | PROVIDERS: ATTEND Internal Medicine Cardiovascular Disease | DX: R07.9 Chest pain, unspecified (principal) | CPT/HCPCS: 93005 ==

== ENCOUNTER 2020-03-16 17:12 | Outpatient (CLI) | payer MEDICARE, OTHER ==
--- NOTE | 2020-03-17 09:21 | XRAY Report ---
PROCEDURE: Chest 2 View X-Ray INDICATIONS: COUGH TECHNIQUE: 2 view(s) of the chest. COMPARISON: None. FINDINGS: Surgical changes and devices: None. Lungs and pleura: No pleural effusions or pneumothorax. Lungs are clear. Mediastinum: Mediastinal contours are normal. Heart size is normal. Bones and chest wall: No suspicious bony abnormalities. Soft tissues appear unremarkable. IMPRESSION: Normal chest. Reviewed by: Madeline Montejo MD on 03/17/2020 9:19 AM [facility] Approved by: Madeline Montejo MD on 03/17/2020 9:19 AM [facility] Station ID: [id number]
== END 2020-03-16 17:13 | disposition home or self-care (01) ==
LOC: DI 17:12
PROVIDERS: ATTEND Internal Medicine Pulmonary Disease
DX: R05 Cough (principal); J45.909 Unspecified asthma, uncomplicated

== ENCOUNTER 2020-03-23 15:04 | Outpatient (CLI) | payer MEDICARE, OTHER | END 2020-03-23 15:05 | disposition home or self-care (01) | LOC: RT 15:04 | PROVIDERS: ATTEND Internal Medicine Pulmonary Disease | DX: J45.909 Unspecified asthma, uncomplicated (principal); R05 Cough | CPT/HCPCS: 94010 ==

== ENCOUNTER 2020-09-24 08:00 | Outpatient (CLI) | payer MEDICARE, OTHER | END 2020-09-24 23:59 | disposition home or self-care (01) | LOC: LAB.S 08:00 | PROVIDERS: ATTEND Physician Assistant Medical | DX: R05 Cough (principal); Z20.822 Contact with and (suspected) exposure to COVID-19 ==

== ENCOUNTER 2021-06-29 14:10 | Outpatient (CLI) | payer MEDICARE, OTHER ==
[2021-06-29 20:00] LABS: BASOPHILS # (AUTO) 0.1 10^3/uL (0.0-0.1); BASOPHILS % (AUTO) 0.6 %; EOSINOPHILS # (AUTO) 0.2 10^3/uL (0.0-0.7); EOSINOPHILS % (AUTO) 2.5 %; HCT - HEMATOCRIT 42.5 % (42.0-52.0); HGB - HEMOGLOBIN 13.7 g/dL (14.0-18.0); LYMPHOCYTES # (AUTO) 2.7 10^3/uL (1.5-3.5); LYMPHOCYTES % (AUTO) 32.8 %; MEAN CORPUSCULAR HEMOGLOBIN 28.9 pg (27.0-31.0); MEAN CORPUSCULAR HGB CONC 32.2 g/dL (32.0-36.0); MEAN CORPUSCULAR VOLUME 89.7 fL (80.0-94.0); MEAN PLATELET VOLUME 10.3 fL (7.4-11.4); MONOCYTES # (AUTO) 0.9 10^3/uL (0.0-1.0); MONOCYTES % (AUTO) 10.2 %; NEUTROPHILS # (AUTO) 4.5 10^3/uL (1.5-6.6); NEUTROPHILS % (AUTO) 53.7 %; PLT - PLATELET COUNT 283 10^3/uL (130-450); RED BLOOD COUNT 4.74 10^6/uL (4.70-6.10); WHITE BLOOD COUNT 8.4 x10^3/uL (4.8-10.8)
[2021-06-29 20:16] LABS: ALBUMIN 3.8 g/dL (3.2-5.5); ALBUMIN/GLOBULIN RATIO 1.4 (1.0-2.2); ALKALINE PHOSPHATASE 54 IU/L (42-121); ALT ALANINE AMINOTRANSFERASE 17 IU/L (10-60); AST ASPARTATE AMINOTRANSFERASE 18 IU/L (10-42); BILIRUBIN,TOTAL 1.1 mg/dL (0.2-1.0); BUN - BLOOD UREA NITROGEN 23 mg/dL (6-20); CALCIUM 9.4 mg/dL (8.5-10.3); CARBON DIOXIDE - CO2 28 mmol/L (21-32); CHLORIDE 94 mmol/L (101-111); CHOL/HDL RATIO 3.2 (<5.0); CHOLESTEROL 139 mg/dL; CREATININE 1.4 mg/dL (0.6-1.2); GFR - MDRD 49 (>89); GLUCOSE 102 mg/dL (70-100); HDL CHOLESTEROL 44 mg/dL; LDL CHOLESTEROL,CALCULATED 45 mg/dL; SODIUM 134 mmol/L (135-145); TOTAL PROTEIN 6.6 g/dL (6.7-8.2); TRIGLYCERIDES 250 mg/dL; VLDL CHOLESTEROL 50 mg/dL
[2021-06-29 20:44] LABS: ESTIMATED AVERAGE GLUCOSE 131 mg/dL (70-100); HEMOGLOBIN A1c% 6.2 % (4.27-6.07)
== END 2021-06-29 14:11 | disposition home or self-care (01) ==
LOC: LAB.S 14:10
PROVIDERS: ATTEND Nurse Practitioner Family
DX: E78.5 Hyperlipidemia, unspecified (principal); N40.1 Benign prostatic hyperplasia with lower urinary tract symptoms; E03.9 Hypothyroidism, unspecified; R73.9 Hyperglycemia, unspecified; R53.83 Other fatigue
CPT/HCPCS: 36415; 80053; 80061; 83036; 83721; 84153; 84443; 85025

== ENCOUNTER 2021-07-04 17:44 | Outpatient (CLI) | payer MEDICARE, OTHER ==
[2021-07-04 20:39] LABS: BILIRUBIN,DIRECT 0.1 mg/dL (0.1-0.5); BILIRUBIN,INDIRECT 0.6 mg/dL; BILIRUBIN,TOTAL 0.7 mg/dL (0.2-1.0); CRP - C-REACTIVE PROTEIN 1.7 mg/dL (0-1.0)
== END 2021-07-04 17:45 | disposition home or self-care (01) ==
LOC: LAB.S 17:44
PROVIDERS: ATTEND Nurse Practitioner Family
DX: R53.83 Other fatigue (principal); R17 Unspecified jaundice
CPT/HCPCS: 36415; 82247; 82248; 85651; 86140

== ENCOUNTER 2021-07-21 15:05 | Outpatient (CLI) | payer MEDICARE, OTHER ==
--- NOTE | 2021-07-21 15:40 | XRAY Report ---
PROCEDURE: Chest 2 View X-Ray INDICATIONS: OTHER FATIGUE TECHNIQUE: 2 view(s) of the chest. COMPARISON: Chest x-ray 03/16/2020 FINDINGS: Surgical changes and devices: None. Lungs and pleura: No pleural effusions or pneumothorax. Lungs are clear. Mediastinum: Mediastinal contours are normal. Heart size is enlarged. Bones and chest wall: No suspicious bony abnormalities. Soft tissues appear unremarkable. IMPRESSION: No acute pulmonary process. Reviewed by: Azul Samson MD on 07/21/2021 3:38 PM PDT Approved by: Azul Samson MD on 07/21/2021 3:38 PM PDT Station ID: [id number]
[2021-07-21 20:24] LABS: BILIRUBIN,URINE NEGATIVE (NEGATIVE); GLUCOSE, URINE (UA) >=1000 mg/dL (NEGATIVE); KETONES,URINE (UA) NEGATIVE (NEGATIVE); LEUKOCYTE ESTERASE, URINE NEGATIVE (NEGATIVE); NITRITE,URINE NEGATIVE (NEGATIVE); OCCULT BLOOD,URINE NEGATIVE (NEGATIVE); PH,URINE 6.5 PH (5.0-7.5); PROTEIN,URINE NEGATIVE (NEGATIVE); UROBILINOGEN,URINE 0.2 (NORMAL) E.U./dL (NORMAL)
[2021-07-21 20:32] LABS: CLARITY,URINE CLEAR (CLEAR)
== END 2021-07-21 15:06 | disposition home or self-care (01) ==
LOC: DI.S 15:05
PROVIDERS: ATTEND Internal Medicine
DX: R53.83 Other fatigue (principal)
CPT/HCPCS: 81001; 81003

== ENCOUNTER 2022-07-18 11:53 | Outpatient (CLI) | payer MEDICARE, OTHER | END 2022-07-18 11:54 | disposition home or self-care (01) | LOC: LAB 11:53 | PROVIDERS: ATTEND Orthopaedic Surgery | DX: Z96.651 Presence of right artificial knee joint (principal) | CPT/HCPCS: 36415 ==

== ENCOUNTER 2022-08-02 12:18 | Outpatient (CLI) | payer MEDICARE, OTHER ==
--- NOTE | 2022-08-02 14:40 | XRAY Report ---
PROCEDURE: Bone Survey Complete INDICATIONS: MGUS TECHNIQUE: Multiple views obtained of various bony structures as described below. COMPARISON: Chest radiographs 07/21/2021, CT head 04/12/2019, lumbar spine radiographs 03/22/2017, hip radiographs 02/16/2016, cervical spine radiographs 08/13/2012 FINDINGS: Skull (lateral): No suspicious bony lesions. No acute fractures. Internal carotid artery atheroscl erotic calcifications seen projecting of the sella. Cervical spine (lateral): No suspicious bony lesions. No acute osseous fracture. Multilevel spondylos is. Thoracic spine (AP, lateral): No suspicious bony lesions. No acute vertebral body compression fract ures. Lumbar spine (AP, lateral): No suspicious bony lesions. No acute vertebral body compression fractur es. Moderate multilevel spondylosis. Aortic atherosclerotic calcifications are present. Chest (PA): Lungs are clear. Mediastinal silhouette is within normal limits. Pelvis (AP): No suspicious bony lesions. No acute fractures. Overlying soft tissues appear unremar kable. Right and left humeri (AP): No suspicious bony lesions. No acute fractures. Overlying soft tissues appear unremarkable. Right and left femurs (AP): No suspicious bony lesions. No acute fractures. Overlying soft tissues appear unremarkable. Right right total knee arthroplasty. IMPRESSION: No suspicious lytic or blastic osseous lesion. Reviewed by: Rob Berger MD on 08/02/2022 2:39 PM PDT Approved by: Rob Berger MD on 08/02/2022 2:39 PM PDT Station ID: [id number]
== END 2022-08-02 12:19 | disposition home or self-care (01) ==
LOC: DI 12:18
PROVIDERS: ATTEND Internal Medicine Hematology & Oncology
DX: D47.2 Monoclonal gammopathy (principal)

== ENCOUNTER 2022-08-03 13:17 | Outpatient (CLI) | payer MEDICARE, OTHER ==
--- NOTE | 2022-08-03 14:16 | SLEEP CARE CONSULTATION ---
Information from patient questionnaire entered by William Patricia. I have reviewed and concur with the information entered by William Patricia. This document represents the service I personally performed and the decisions made by me, Sarah Vidales ARNP. History of Present Illness Service Date and Time: 08/03/2022 1317 Reason for Visit: New patient, sleep apnea on CPAP therapy Chief Complaint: reports: Unrefreshed sleep Usual bedtime: MIDNIGHT Time it takes to fall asleep: 15-30MIN Snores at night: Yes Observed to quit breathing while asleep: No Sleeps alone due to snoring: No Number of times waking at night: 3 Reasons for waking at night: reports: Bathroom, Other (DRY MOUTH) Recalls having dreams: Yes (rare) Usually gets out of bed at: 9AM Feels refreshed in the morning: No (often don't) Morning headache: No Sleepy or fatigued during the day: Yes Ever fallen asleep while driving: No Takes day naps: No Dreams during day naps: No Prior sleep studies: Yes Year and Where: [facility] 2014 Additional HPI information: GEORGETTE FERNÁNDEZ was previously diagnosed to have unknown, AHI unknown, sleep apnea-hypopnea syndrome and comes in today to establish care for CPAP therapy. - Parasomnia Symptoms Ever been unable to move upon waking from sleep: No Walks in sleep: No Talks in sleep: No Ever acted out dreams in sleep: No Ever felt weak in the knees when startled or emotional: No Bothered by creepy, crawly, restless sensations in legs: No Problems with memory or concentration: No CPAP Compliance Data - Data Reviewed with Patient Average duration of nightly device use: 8 hours 38 minutes Compliance rate %: 100 (90/90 days used) Current pressure setting (cmH2O): 5-12.2 Average residual AHI: 1.3 Central apnea: 0.3 Obstructive apnea: 0.8 Hypopnea: 0.2 Compliance data discussion: He has an Airsense 10. He is getting his supplies [employer]. He is using a nasal cushion, Dreamwear, small cushion. He does have a back up mask if needed. Subjective Patient concerns: denies: aerophagia, mask discomfort, air blowing in eyes, mask leak noise, condensation in mask/hose, nasal congestion, dry mouth, nose, throat, epistaxis Observed to snore while using device: No Current pressure setting perceived as: comfortable On therapy, patient: reports: sleeping better, awakening more refreshed, being more awake and alert during the day, more rested overall. denies: drowsiness while driving Initial [place] Sleepiness Scale score: 3 (08/03/22) Past Medical History Past Medical History: reports: Hypertension, Coronary Heart Disease (2 stents placed), GERD Social History The patient's occupation is a RE. Patient is and lives in . Have you smoked in the past 12 months: No Alcohol use: Yes Alcohol amount and frequency: RARLEY Caffeine use: Yes Caffeine amount and frequency: 1-2 daily Family History Family history of sleep disordered breathing: No Allergies and Home Medications Known drug allergies: No Drug allergies reviewed: Yes Home medication list reviewed: Yes (see updated list in EMR) Allergy and home medication list: Allergies No Known Drug Allergies Allergy (Verified 08/02/22 10:21) Review of Systems Cardiovascular: reports: high blood pressure Respiratory: reports: sputum production Gastrointestinal: reports: heartburn, difficulty swallowing Neurological: reports: other (POTUATARY TUMOR REMOVED). denies: headaches Psychiatric: reports: anxiety. denies: depression Ear/Nose/Throat: reports: nasal congestion, sinus problems, dry mouth/throat Endocrine: reports: thyroid disease Musculoskeletal: reports: joint pain Physical Exam Vital signs obtained and entered by: WILLIAM Pimentel MA Blood Pressure: 100/60 (LEFT ARM) Cuff size: regular Heart Rate: 63 O2 Saturation: 96 Height: 5 ft 7 in Weight: 164 lb 9.6 oz Body Mass Index: 25.7 BMI Classification: Overweight Neck circumference: 14.75 Heart: regular rate and rhythm Lungs: clear bilaterally Impression and Plan 1. Obstructive Sleep Apnea-Hypopnea Syndrome, unknown, with good treatment compliance and good apnea control. On CPAP therapy, the patient has better sleep quality and is more rested overall. We have not yet received a copy of his sleep study from [facility] but it has been requested. Once I have the records, I will update his supply prescription with [employer]. Patient informs me that he is going for sinus surgery in August and he thinks his ENT provider advised him to use a full face mask post op to reduce pressure on nasal passages while healing. I will add a mask fitting for a full face mask for him to use after his procedure to his DME prescription. His last machine was updated over 5 years ago. Thus, the CPAP will be updated. A DWO prescription will be made for the machine as well. Compliance guidelines for new device and follow up discussed. Patient's apnea severity and rationale for treatment to reduce apnea, improve sleep quality and reduce cardiovascular and cerebrovascular events was reviewed. I also reviewed the benefit of consistent device use of CPAP for hypertension. 2. Overweight, unspecified. Currently patients BMI is 25.7. Obesity increases the risk of apnea, CPAP pressure requirements and overall health risks especially cardiovascular and diabetes. Thus patient is advised to lose weight. * Continue auto CPAP pressure at 5-12.2 cmH2O * Full face mask fitting for use after surgery * Update machine * Update supply prescription * Notify me if snoring with mask or feeling that the pressure is too much or too little * Attempt to lose weight * Call this office if any problems using CPAP * Return for follow up one month after obtaining new device, or sooner if concerns arise Counseling Topics: Spare mask, Weight control Visit Type: In Office Time Spent with Patient (minutes): 44 Provider Statement: I spent 100% of the Face to Face Visit with the patient with greater than 50% spent counseling the patient and coordination of care.
[2022-08-03 14:22] VITALS: BP 100/60
== END 2022-08-03 13:18 | disposition home or self-care (01) ==
LOC: SC 13:17
PROVIDERS: ATTEND Nurse Practitioner Family
DX: G47.33 Obstructive sleep apnea (adult) (pediatric) (principal); E66.3 Overweight; Z68.25 Body mass index [BMI] 25.0-25.9, adult
CPT/HCPCS: 99203; G0463; 99212

== ENCOUNTER 2023-10-13 13:29 | Outpatient (CLI) | payer MEDICARE, OTHER ==
--- NOTE | 2023-10-13 14:38 | CT Report ---
PROCEDURE: Head WO INDICATIONS: HEADACHE TECHNIQUE: Helical axial CT of the brain was obtained without contrast and reformatted in multiple p lanes. Radiation dose reduction was achieved using automated exposure control or adjustment of mA and /or kV according to patient size. COMPARISON: 04/12/2019 FINDINGS: CSF spaces: Ventricles are appropriate in size and position. No hydrocephalus. Basal cisterns unre markable. Brain: No midline shift. No intracranial masses or hemorrhage. Ceron-white matter interface is norm al. Skull and face: Calvarium and skull base are unremarkable without suspicious lesion. Sinuses: Visualized sinuses and mastoids are clear. IMPRESSION: Unremarkable CT of the brain Reviewed by: Jay Amos MD on 10/13/2023 1:37 PM AKDT Approved by: Jay Amos MD on 10/13/2023 1:37 PM AKDT Station ID: [id number]
== END 2023-10-13 13:30 | disposition home or self-care (01) ==
LOC: DI 13:29
DX: R51.9 Headache, unspecified (principal)
CPT/HCPCS: 36415; 80053; 85025; 85651; 86140

== ENCOUNTER 2023-10-13 14:10 | Outpatient (CLI) | payer MEDICARE, OTHER ==
[2023-10-13 14:28] LABS: BASOPHILS # (AUTO) 0.1 10^3/uL (0.0-0.1); BASOPHILS % (AUTO) 0.5 %; EOSINOPHILS # (AUTO) 0.1 10^3/uL (0.0-0.7); EOSINOPHILS % (AUTO) 1.3 %; HCT - HEMATOCRIT 43.1 % (42.0-52.0); HGB - HEMOGLOBIN 14.1 g/dL (14.0-18.0); LYMPHOCYTES # (AUTO) 2.3 10^3/uL (1.5-3.5); LYMPHOCYTES % (AUTO) 24.1 %; MEAN CORPUSCULAR HEMOGLOBIN 29.4 pg (27.0-31.0); MEAN CORPUSCULAR HGB CONC 32.7 g/dL (32.0-36.0); MEAN CORPUSCULAR VOLUME 89.8 fL (80.0-94.0); MEAN PLATELET VOLUME 10.3 fL (7.4-11.4); MONOCYTES # (AUTO) 0.8 10^3/uL (0.0-1.0); MONOCYTES % (AUTO) 8.4 %; NEUTROPHILS # (AUTO) 6.3 10^3/uL (1.5-6.6); NEUTROPHILS % (AUTO) 65.3 %; PLT - PLATELET COUNT 237 10^3/uL (130-450); RED CELL DISTRIBUTION WIDTH 14.3 % (12.0-15.0); WHITE BLOOD COUNT 9.6 x10^3/uL (4.8-10.8)
[2023-10-13 14:56] LABS: ALBUMIN/GLOBULIN RATIO 1.9 (1.0-2.2); ALKALINE PHOSPHATASE 45 IU/L (42-121); ALT ALANINE AMINOTRANSFERASE 15 IU/L (10-60); AST ASPARTATE AMINOTRANSFERASE 14 IU/L (10-42); BILIRUBIN,TOTAL 0.6 mg/dL (0.2-1.0); BUN - BLOOD UREA NITROGEN 21 mg/dL (6-20); CALCIUM 8.9 mg/dL (8.5-10.3); CARBON DIOXIDE - CO2 31 mmol/L (21-32); CHLORIDE 102 mmol/L (101-111); CREATININE 1.4 mg/dL (0.6-1.3); CRP - C-REACTIVE PROTEIN < 0.5 mg/dL (<0.5); GFR - MDRD 49 (>89); GLUCOSE 147 mg/dL (74-104); POTASSIUM 3.5 mmol/L (3.5-4.5); SODIUM 139 mmol/L (135-145); TOTAL PROTEIN 6.1 g/dL (6.4-8.9)
== END 2023-10-13 14:11 | disposition home or self-care (01) ==
LOC: LAB 14:10
PROVIDERS: ATTEND Registered Nurse
DX: R51.9 Headache, unspecified (principal)
CPT/HCPCS: 36415; 80053; 85025; 85651; 86140

== ENCOUNTER 2023-11-22 10:28 | Outpatient (CLI) | payer MEDICARE, OTHER ==
--- NOTE | 2023-11-22 11:26 | Sleep Patient Instructions ---
Sleep Center Visit Summary - Patient Visit Information Reason for Visit: Annual follow-up for PAP therapy - Patient Instructions Additional Instructions: You will continue with CPAP therapy with pressure changed to 9-12.2 cmH2O. Please let us know if the pressure change is uncomfortable and we can make further adjustments of the pressure. A supply prescription will be updated with your DME supplier. Please follow up with the sleep care office in 1 year. - Clinic Information Contact: [facility] [address] [place] [address] [email or web address] T: [phone]
--- NOTE | 2023-11-22 11:34 | SLEEP CARE CONSULTATION ---
Information from patient questionnaire entered by Dylan Barcenas. I have reviewed and concur with the information entered by Dylan Barcenas. This document represents the service I personally performed and the decisions made by , Sarah Vidales ARNP. History of Present Illness Service Date and Time: 11/22/2023 1028 Previous diagnosis: Mild, Obstructive Sleep Apnea-Hypopnea Syndrome AHI: 5.6 (with RDI 14.9 in 2014) Reason for follow up: annual (Last seen 07/2022) Equipment type: CPAP ([employer]med Airsense 11, s/u 12/2022) Equipment obtained from: [employer] (getting supplies) Mask style: Nasal Mask brand: Respironics (Dreamwear) Backup mask available: Yes Last cushion change: every 1-2 months Prior sleep studies: Yes Year and Where: [facility] 2014 HPI additional information: GEORGETTE FERNÁNDEZ was diagnosed to have mild, AHI 5.6 with RDI of 14.9, obstructive sleep apnea-hypopnea syndrome and returned today for CPAP therapy annual follow- up. Sleep Study - Results Prior sleep studies: Yes Year and Where: [facility] 2014 CPAP Compliance Data - Data Reviewed with Patient Average duration of nightly device use: 7 h 44 mins Compliance rate %: 97 (29/30 days used) Current pressure setting (cmH2O): 5 - 12.2 (median 7.7, avg 10, max 10.9) Average residual AHI: 2.3 Central apnea: 1.1 Obstructive apnea: 0.5 Hypopnea: 0.6 Average large leak: 4.9 L/min Compliance data discussion: Has used other machine when staying near in other apartment. Subjective Missed days of use due to: reports: travel Patient concerns: reports: mask leak noise, dry mouth, nose, throat (dry mouth sometimes). denies: aerophagia, mask discomfort, air blowing in eyes, condensation in mask/hose, nasal congestion, epistaxis Observed to snore while using device: No Current pressure setting perceived as: Discuss Initial [place] Sleepiness Scale score: 3 (08/03/22) Current [place] Sleepiness Scale score: 2 (11/22/23) Allergies and Home Medications Known drug allergies: No Drug allergies reviewed: Yes Home medication list reviewed: Yes (prednisone, Ozempic) Review of Systems Review of systems same as previous: Yes (chronic sinus infection; sinus surgery about 1 yr ago) Physical Exam Vital signs obtained and entered by: Sarah Varghese NP Blood Pressure: 125/82 Cuff size: regular (left arm) Heart Rate: 52 O2 Saturation: 97 Height: 5 ft 7 in Weight: 168 lb 3.2 oz Weight change since last visit: 4 lb gain Body Mass Index: 26.3 BMI Classification: Overweight Impression and Plan 1. Obstructive Sleep Apnea-Hypopnea Syndrome, mild, with good treatment compliance and good apnea control. On CPAP therapy, the patient has better sleep quality and is more rested overall. He states sometimes he feels like he needs more air from his machine. He does like his nasal cushion mask, DreamWear. He occasionally gets oral dryness but it is not every night and he may be oral venting. We did discuss why he should try a full face mask and I showed him a DreamWear full face mask that is similar to the when he is wearing but he will have to think about it before changing to this option. The patients pressure will be changed to autoCPAP 9-12.2 cmH20. Patient advised to contact me if pressure change is uncomfortable so that it can be adjusted. Goals for apnea control discussed. Patient's apnea severity and rationale for treatment to reduce apnea, improve sleep quality and reduce cardiovascular and cerebrovascular events was reviewed. I also reviewed the benefit of consistent device use of CPAP for hypertension, cardiac disease (CHD), gastric reflux. 2. Overweight, unspecified. Currently patients BMI is 26.3. Obesity increases the risk of apnea, CPAP pressure requirements and overall health risks especially cardiovascular and diabetes. Thus patient is advised to maintain a healthy weight. * Change auto CPAP pressure to 9-12.2 cmH2O * Update supply prescription. * Notify me if snoring with mask or feeling that the pressure is too much or too little * Attempt to lose weight * Call this office if any problems using CPAP * Return for follow up in 12 months, or sooner if concerns arise Adjust device pressure to (cmH2O): 9-12.2 Counseling Topics: Spare mask, Weight loss health impact Prescriptions: Device supplies Follow up with Sleep Care in: 1 year Visit Type: In Office Time Spent with Patient (minutes): 32 Provider Statement: I spent 100% of the Face to Face Visit with the patient with greater than 50% spent counseling the patient and coordination of care.
[2023-11-22 11:39] VITALS: BP 125/82; O2SAT 97
== END 2023-11-22 10:29 | disposition home or self-care (01) ==
LOC: SC 10:28
PROVIDERS: ATTEND Nurse Practitioner Family
DX: G47.33 Obstructive sleep apnea (adult) (pediatric) (principal); E66.3 Overweight; Z68.26 Body mass index [BMI] 26.0-26.9, adult
CPT/HCPCS: 99213; G0463; 99212